=== PATIENT | female | born 1960 | race Caucasian/White ===

== ENCOUNTER 2017-04-15 16:08 | Emergency (ER) | payer MEDICARE, OTHER ==
[2017-04-15 16:36] VITALS: BP 119/58
--- NOTE | 2017-04-15 18:45 | UC ---
HPI Febrile Illness - HPI Summary HPI Summary: 56 yo female with f/c, myalgias since this AM [facility] no sore throat no cough no n/v/d no CP/SOB no UTI symptoms expsode to strep hx UTIs - History of Current Complaint Chief Complaint: UCGeneralIllness Time Seen by Provider: 04/15/17 16:44 Hx Obtained From: Patient Onset/Duration: Started Hours Ago Time of Onset: 08:00 Timing: Constant Initial Severity: Mild Current Severity: Mild Pain Intensity: 0 Pain Scale Used: 0-10 Numeric Aggravating Factors: Nothing Alleviating Factors: OTC Medicine Associated Signs and Symptoms: Arthralgia, Chills - Allergy/Home Medications Allergies/Adverse Reactions: Allergies Allergy/AdvReac Type Severity Reaction Status Date / Time NSAIDs Allergy See Comment Verified 04/15/17 16:25 Home Medications: Home Medications ALPRAZolam TAB* [Xanax TAB*] 1 mg PO TID 04/15/17 [History Confirmed 04/15/17] Acetaminophen TAB* [Tylenol TAB*] 1,000 mg PO ONCE PRN 04/15/17 [History Confirmed 04/15/17] Atorvastatin* [Lipitor*] 40 mg PO QPM 04/15/17 [History Confirmed 04/15/17] Lisinopril/HCTZ 20/12.5(NF) [Zestoretic 20/12.5(NF)] 1 tab PO DAILY 04/15/17 [ History Confirmed 04/15/17] Magnesium [Magnesium] 400 mg PO DAILY 04/15/17 [History Confirmed 04/15/17] Metoprolol Succinate XL TAB* [Toprol XL TAB*] 50 mg PO DAILY 04/15/17 [History Confirmed 04/15/17] Nortriptyline CAP* [Pamelor CAP*] 50 mg PO BEDTIME 04/15/17 [History Confirmed 04/15/17] Pantoprazole TAB (NF) [Protonix TAB (NF)] 40 mg PO DAILY 04/15/17 [History Confirmed 04/15/17] buPROPion SR TAB* [Wellbutrin SR TAB*] 150 mg PO BID 04/15/17 [History Confirmed 04/15/17] busPIRone TAB* [Buspar TAB *] 15 mg PO TID 04/15/17 [History Confirmed 06/21/17] metFORMIN* [Glucophage 500 MG TAB *] 500 mg PO BEDTIME 04/15/17 [History Confirmed 04/15/17] PMH/Surg Hx/FS Hx/Imm Hx Endocrine/Hematology History: Reports: Hx Diabetes Cardiovascular History: Reports: Hx Hypertension - Surgical History Surgery Procedure, Year, and Place: bilateral TKA, csection x2, hysterectomy, lap bam, hernia repair x3, transvaginal mesh Infectious Disease History: No Infectious Disease History: Denies: Traveled Outside the [place] in Last 30 Days - Family History Known Family History: Positive: Hypertension, Diabetes - Social History Alcohol Use: None Substance Use Type: Reports: None Smoking Status (MU): Light Every Day Tobacco Smoker Type: Cigarettes Amount Used/How Often: 1-2 cigarettes daily Review of Systems Constitutional: Fever, Chills, Fatigue Skin: Negative Eyes: Negative ENT: Negative Respiratory: Negative Cardiovascular: Negative Gastrointestinal: Negative Genitourinary: Negative Motor: Negative Neurovascular: Negative Musculoskeletal: Arthralgia, Myalgia Neurological: Headache Psychological: Negative All Other Systems Reviewed And Are Negative: Yes Physical Exam Triage Information Reviewed: Yes Appearance: Well-Appearing, No Pain Distress, Well-Nourished Vital Signs: Initial Vital Signs Temp 98.7 F 04/15/17 16:29 Pulse 83 04/15/17 16:29 Resp 16 04/15/17 16:29 BP 119/58 04/15/17 16:29 Pulse Ox 98 04/15/17 16:29 Vital Signs Reviewed: Yes Eyes: Positive: Conjunctiva Clear ENT: Positive: Hearing grossly normal, Pharyngeal erythema, TMs normal. Negative: Nasal congestion, Nasal drainage, Tonsillar swelling, Tonsillar exudate, Trismus, Muffled/hoarse voice Dental: Negative: Abscess @ Neck: Positive: Supple, Nontender, No Lymphadenopathy Respiratory: Positive: Lungs clear, Normal breath sounds, No respiratory distress, No accessory muscle use Cardiovascular: Positive: RRR, No Murmur Abdomen Description: Positive: Nontender, No Organomegaly, Soft. Negative: CVA Tenderness (R), CVA Tenderness (L) Musculoskeletal: Positive: ROM Intact, No Edema Neurological: Positive: Alert Psychological Exam: Normal Skin Exam: Normal Course/Dx - Diagnoses Clinic Provider Diagnoses: fever of uncertain cause. ? UTI Discharge - Discharge Plan Condition: Stable Disposition: HOME Prescriptions: Nitrofurantoin Monohyd Macro [Macrobid] 100 mg PO BID #14 cap Patient Education Materials: Fever in Adults (ED) Referrals: No Primary Care Phys,NOPCP [Primary Care Provider] - Additional Instructions: your urine has some white cells in it a culture is pending your strep test was negative see your MD in 2 days if not better
== END 2017-04-15 17:30 | disposition home or self-care (01) ==
LOC: UCCORT 16:08
DX: R50.9 Fever, unspecified (principal); Z87.440 Personal history of urinary (tract) infections; Z88.6 Allergy status to analgesic agent; E11.9 Type 2 diabetes mellitus without complications; Z79.84 Long term (current) use of oral hypoglycemic drugs; I10 Essential (primary) hypertension; Z90.49 Acquired absence of other specified parts of digestive tract; Z90.710 Acquired absence of both cervix and uterus; F17.210 Nicotine dependence, cigarettes, uncomplicated
CPT/HCPCS: 81003; 87086; 87651; 99202; G0463

== ENCOUNTER 2024-08-12 14:48 | Inpatient (IN) ==
[2024-08-12 17:36] LABS: Budding Yeast Present /HPF (Absent); Urine Appearance Extra Turbid; Urine Bacteria 1+ /HPF (Absent); Urine Bilirubin 1+ (Negative); Urine Blood 1+ (Negative); Urine Color Yellow; Urine Glucose Negative (Negative); Urine Ketones Trace (Negative); Urine Nitrite Negative (Negative); Urine Protein 1+ (>=30 mg/dL) (Negative); Urine Red Blood Cell 3+(>10/hpf) /HPF (0-Trace); Urine Specific Gravity 1.036 (1.002-1.030); Urine Squamous Epithelial Cell Present /HPF (Absent); Urine Urobilinogen 1+ (Negative); Urine White Blood Cell 3+(>20/hpf) /HPF (0-Trace)
[2024-08-12 17:48] LABS: ABS Eosinophils 0.1 10^3/uL (0.0-0.5); ABS Lymphocytes 2.7 10^3/uL (1.0-4.8); ABS Monocytes 0.6 10^3/uL (0.0-0.9); ABS Neutrophils 4.1 10^3/uL (1.5-7.6); ABS Nucleated RBC 0.01 10^3/ul; Eosinophil % 1.7 %; Hematocrit 40.5 % (35-45); Hemoglobin 12.6 g/dL (11.5-14.3); Lymphocyte % 35.8 %; Mean Corpuscular Hemoglobin 30.1 pg (27-33); Mean Corpuscular Volume 96.9 fL (80-97); Mean Platelet Volume 8.3 fL (7.5-11.2); Nucleated Red Blood Cells % 0.1 %/100WBC (0.0-0.8); Platelet Count 233 10^3/uL (150-450); Red Blood Count 4.18 10^6/uL (3.63-4.92); Red Cell Distribution Width 15.6 % (12-17); White Blood Count 7.5 10^3/uL (3.8-11.8)
[2024-08-12 18:03] LABS: TSH Ultra Thyroid Stim Horm 2.29 mcIU/mL (0.34-5.60)
[2024-08-12 18:17] LABS: Urine Benzodiazepine Screen Presumptive Positive (None Detect); Urine Cannabinoids Screen None Detected (None Detect); Urine Opiates Screen None Detected (None Detect)
[2024-08-12 18:18] LABS: ALT 16 U/L (7-52); AST 18 U/L (13-39); Acetaminophen < 15 mcg/mL; Albumin/Globulin Ratio 1.5 (1-3); Alcohol, S < 13 mg/dL (<13); Alkaline Phosphatase 135 U/L (35-149); Anion Gap 11 mmol/L (2-16); Blood Urea Nitrogen 20 mg/dL (6-24); CO2 Carbon Dioxide 26 mmol/L (22-32); Calcium 9.9 mg/dL (8.6-10.3); Chloride 99 mmol/L (101-111); Creatinine, Serum 1.56 mg/dL (0.51-0.95); Globulin 2.6 g/dL (2-4); Glucose 113 mg/dL (70-100); Potassium 3.9 mmol/L (3.5-5.0); Salicylate < 2.50 mg/dL (<30); Sodium 136 mmol/L (135-145); Total Bilirubin 0.4 mg/dL (0.2-1.0); Total Protein 6.6 g/dL (6.4-8.9); eGFR CKD-EPI 36.9 (>60)
[2024-08-12] MEDS ORDERED: Al Hydrox/Mg Hydrox/Simet LIQ 30 ML UDC PO PRN (19:10)
[2024-08-12] MEDS ORDERED: Nicotine GUM 2MG FRUIT FLAVOR PO PRN (19:10)
[2024-08-12] MEDS ORDERED: OLANZapine 5 mg TAB *ODT PO PRN (19:15)
[2024-08-12] MEDS ORDERED: Nitrofurantoin (monohydrate/macrocrystals) 100 mg CAP PO ONE (20:07)
[2024-08-12] MEDS: Nitrofurantoin (monohydrate/macrocrystals) 100 mg CAP PO SCH (21:26)
[2024-08-13 07:51] LABS: HDL Cholesterol 34.6 mg/dL
[2024-08-13] MEDS: Vitamin THERAPEUTIC TAB PO SCH (09:48)
[2024-08-13] MEDS ORDERED: Albuterol HFA INHALER 8 gm MDI INH PRN (12:48)
[2024-08-14] MEDS: Mupirocin 2% OINT TUBE TOPICAL SCH (16:03)
[2024-08-14] MEDS: Nystatin TOP POWDER 15 GM BTL TOPICAL SCH (16:03)
[2024-08-17 08:24] LABS: Albumin 3.3 g/dL (3.2-5.2); Albumin/Globulin Ratio 1.3 (1-3); Calcium 9.3 mg/dL (8.6-10.3); Creatinine, Serum 0.95 mg/dL (0.51-0.95); Globulin 2.6 g/dL (2-4); Potassium 4.1 mmol/L (3.5-5.0); Total Bilirubin 0.6 mg/dL (0.2-1.0); Total Protein 5.9 g/dL (6.4-8.9); eGFR CKD-EPI 66.9 (>60)
[2024-08-18] MEDS: SEMAGLUTIDE SUBCUT SCH (08:44)
[2024-08-18] MEDS: INJECTOR SUBCUT SCH (08:44)
[2024-08-19] MEDS: Nitrofurantoin (monohydrate/macrocrystals) 100 mg CAP PO SCH (20:43)
[2024-08-20] MEDS: Polyethylene Glycol 3350 17 GM PACKET PO PRN (08:31)
[2024-08-20 08:56] LABS: Albumin 3.8 g/dL (3.2-5.2); Albumin/Globulin Ratio 1.3 (1-3); Calcium 9.9 mg/dL (8.6-10.3); Creatinine, Serum 0.91 mg/dL (0.51-0.95); Potassium 4.4 mmol/L (3.5-5.0); Total Bilirubin 0.6 mg/dL (0.2-1.0); Total Protein 6.8 g/dL (6.4-8.9); eGFR CKD-EPI 70.4 (>60)
[2024-08-23] MEDS: RISPERIDONE SUBCUT ONE (11:42)
[2024-08-23] MEDS: risperiDONE ER SUBCUT (NF) 200 MG/0.56 ML SYRINGE SUBCUT ONE (12:21)
[2024-08-23] MEDS: Venlafaxine XR 75 mg PO SCH (15:21)
[2024-08-24 10:01] VITALS: BP 110/75
[2024-08-25] MEDS ORDERED: SEMAGLUTIDE SUBCUT SCH (09:00)
== END 2024-08-24 13:40 | disposition home or self-care (01) | DRG 885 ==
LOC: ED 14:48 → EDHOLD 19:10 → BSU 22:28
PROVIDERS: ADMIT Psychiatry & Neurology Psychiatry; ATTEND Student in an Organized Health Care Education/Training Program

== ENCOUNTER 2024-09-27 14:19 | Inpatient (IN) ==
[2024-09-27 15:35] LABS: ABS Basophils 0.1 10^3/uL (0.0-0.1); ABS Eosinophils 0.1 10^3/uL (0.0-0.5); ABS Lymphocytes 3.2 10^3/uL (1.0-4.8); ABS Monocytes 0.6 10^3/uL (0.0-0.9); ABS Neutrophils 8.2 10^3/uL (1.5-7.6); ABS Nucleated RBC 0.01 10^3/ul; Eosinophil % 0.4 %; Hematocrit 36.9 % (35-45); Hemoglobin 12.5 g/dL (11.5-14.3); Lymphocyte % 26.6 %; Mean Corpuscular Hemoglobin 30.4 pg (27-33); Mean Corpuscular Hgb Conc 33.8 g/dL (31-36); Mean Corpuscular Volume 89.9 fL (80-97); Mean Platelet Volume 7.7 fL (7.5-11.2); Nucleated Red Blood Cells % 0.1 %/100WBC (0.0-0.8); Platelet Count 368 10^3/uL (150-450); Red Cell Distribution Width 14.6 % (12-17); White Blood Count 12.1 10^3/uL (3.8-11.8)
[2024-09-27 15:38] LABS: Urine Appearance Clear; Urine Bilirubin Negative (Negative); Urine Blood Negative (Negative); Urine Color Light-Yellow; Urine Glucose Negative (Negative); Urine Ketones Negative (Negative); Urine Nitrite Negative (Negative); Urine Protein Negative (Negative); Urine Specific Gravity 1.006 (1.002-1.030); Urine Urobilinogen Negative (Negative); Urine pH 6.5 (5.0-8.0)
[2024-09-27 16:09] LABS: ALT 15 U/L (7-52); Acetaminophen < 15 mcg/mL; Albumin 4.4 g/dL (3.2-5.2); Albumin/Globulin Ratio 1.6 (1-3); Alcohol, S < 13 mg/dL (<13); Alkaline Phosphatase 95 U/L (35-149); Blood Urea Nitrogen 7 mg/dL (6-24); CO2 Carbon Dioxide 24 mmol/L (22-32); Calcium 10.4 mg/dL (8.6-10.3); Chloride 102 mmol/L (101-111); Creatinine, Serum 0.83 mg/dL (0.51-0.95); Globulin 2.8 g/dL (2-4); Glucose 121 mg/dL (70-100); Salicylate < 2.50 mg/dL (<30); Sodium 136 mmol/L (135-145); Total Bilirubin 0.4 mg/dL (0.2-1.0); Total Protein 7.2 g/dL (6.4-8.9); eGFR CKD-EPI 78.2 (>60)
[2024-09-27 16:10] LABS: TSH Ultra Thyroid Stim Horm 1.11 mcIU/mL (0.34-5.60)
[2024-09-27 16:11] LABS: Anion Gap 10 mmol/L (2-16)
[2024-09-27 16:17] LABS: Urine Benzodiazepine Screen None Detected (None Detect); Urine Cannabinoids Screen None Detected (None Detect); Urine Opiates Screen None Detected (None Detect)
[2024-09-27] MEDS ORDERED: Al Hydrox/Mg Hydrox/Simet LIQ 30 ML UDC PO PRN (19:05)
[2024-09-28 08:05] LABS: HDL Cholesterol 37.9 mg/dL
[2024-09-28] MEDS: Vitamin THERAPEUTIC TAB PO SCH (08:50)
[2024-09-28] MEDS ORDERED: Albuterol HFA INHALER 8 gm MDI INH PRN (10:35)
[2024-09-28 10:41] LABS: Potassium Redraw 4.6 mmol/L (3.5-5.0)
[2024-09-28] MEDS ORDERED: AMLODIPINE VALSARTAN PO SCH (10:45)
[2024-09-29] MEDS: Nystatin TOP POWDER 15 GM BTL TOPICAL SCH (08:52)
[2024-09-30 09:57] VITALS: BP 144/80
== END 2024-09-30 15:05 | disposition home or self-care (01) | DRG 885 ==
LOC: ED 14:19 → EDHOLD 19:28 → BSU 19:39
PROVIDERS: ADMIT Psychiatry & Neurology Psychiatry; ATTEND Psychiatry & Neurology Psychiatry

== ENCOUNTER 2024-10-23 18:03 | Inpatient (IN) ==
[2024-10-23 20:28] LABS: Urine Appearance Clear; Urine Bilirubin Negative (Negative); Urine Blood Negative (Negative); Urine Color Colorless; Urine Glucose Negative (Negative); Urine Ketones Negative (Negative); Urine Nitrite Negative (Negative); Urine Protein Negative (Negative); Urine Specific Gravity 1.003 (1.002-1.030); Urine Urobilinogen Negative (Negative)
[2024-10-23 20:31] LABS: Urine Bacteria Absent /HPF (Absent); Urine Red Blood Cell Trace(0-2/hpf) /HPF (0-Trace); Urine Squamous Epithelial Cell Present /HPF (Absent); Urine White Blood Cell 1+(6-10/hpf) /HPF (0-Trace)
[2024-10-23 21:06] LABS: ABS Basophils 0.1 10^3/uL (0.0-0.1); ABS Eosinophils 0.1 10^3/uL (0.0-0.5); ABS Lymphocytes 2.6 10^3/uL (1.0-4.8); ABS Monocytes 0.6 10^3/uL (0.0-0.9); ABS Neutrophils 7.5 10^3/uL (1.5-7.6); ABS Nucleated RBC 0.01 10^3/ul; Eosinophil % 0.6 %; Hematocrit 32.9 % (35-45); Hemoglobin 11.3 g/dL (11.5-14.3); Mean Corpuscular Hemoglobin 30.4 pg (27-33); Mean Corpuscular Hgb Conc 34.5 g/dL (31-36); Mean Corpuscular Volume 88.3 fL (80-97); Mean Platelet Volume 7.2 fL (7.5-11.2); Nucleated Red Blood Cells % 0.1 %/100WBC (0.0-0.8); Platelet Count 363 10^3/uL (150-450); Red Blood Count 3.73 10^6/uL (3.63-4.92); Red Cell Distribution Width 13.7 % (12-17); White Blood Count 10.9 10^3/uL (3.8-11.8)
[2024-10-23 21:37] LABS: Albumin/Globulin Ratio 1.6 (1-3); C Reactive Protein 10.42 mg/L (<8.01); Calcium 10.6 mg/dL (8.6-10.3); Creatinine, Serum 0.77 mg/dL (0.51-0.95); Globulin 2.5 g/dL (2-4); Potassium 4.3 mmol/L (3.5-5.0); Total Bilirubin 0.4 mg/dL (0.2-1.0); Total Protein 6.5 g/dL (6.4-8.9); eGFR CKD-EPI 85.6 (>60)
[2024-10-23 21:51] LABS: TSH Ultra Thyroid Stim Horm 1.91 mcIU/mL (0.34-5.60)
[2024-10-23] MEDS ORDERED: Ondansetron 4 mg VIAL 2 MG/ML 2 ml VIAL IV PRN (22:45)
[2024-10-23] MEDS ORDERED: Senna TAB 8.6 mg TAB PO PRN (22:45)
[2024-10-23] MEDS ORDERED: Polyethylene Glycol 3350 17 GM PACKET PO PRN (22:45)
[2024-10-23] MEDS ORDERED: Dextrose 50% Syringe 50 ml 25 GM/50 ML SYRINGE IV PUSH PRN (22:50)
[2024-10-24] MEDS: Enoxaparin 40 MG/0.4 ML SYR SUBCUT SCH (01:16)
[2024-10-24] MEDS: Lactated Ringers 1000 ml BAG 1,000 ML IV SCH (01:37)
[2024-10-24] MEDS: Lactated Ringers 1000 ml BAG 1,000 ML IV ONE (03:30)
[2024-10-24 04:40] LABS: ABS Basophils 0.1 10^3/uL (0.0-0.1); ABS Eosinophils 0.1 10^3/uL (0.0-0.5); ABS Lymphocytes 1.8 10^3/uL (1.0-4.8); ABS Monocytes 0.7 10^3/uL (0.0-0.9); ABS Neutrophils 4.3 10^3/uL (1.5-7.6); ABS Nucleated RBC 0.01 10^3/ul; Eosinophil % 1.2 %; Hematocrit 28.3 % (35-45); Mean Corpuscular Hemoglobin 31.4 pg (27-33); Mean Corpuscular Hgb Conc 35.5 g/dL (31-36); Mean Corpuscular Volume 88.6 fL (80-97); Nucleated Red Blood Cells % 0.2 %/100WBC (0.0-0.8); Platelet Count 275 10^3/uL (150-450); Red Cell Distribution Width 13.8 % (12-17); White Blood Count 6.8 10^3/uL (3.8-11.8)
[2024-10-24 05:11] LABS: Calcium 8.7 mg/dL (8.6-10.3); Creatinine, Serum 0.78 mg/dL (0.51-0.95); Magnesium 1.8 mg/dL (1.9-2.7); Potassium 4.1 mmol/L (3.5-5.0); eGFR CKD-EPI 84.2 (>60)
[2024-10-24] MEDS: Albuterol HFA INHALER 8 gm MDI INH PRN (08:18)
[2024-10-24] MEDS: Magnesium Sulfate 2 gm BAG 2 GM/50 ML BAG IVPB ONE (08:18)
[2024-10-24] MEDS ORDERED: AMLODIPINE VALSARTAN PO SCH (09:00)
[2024-10-24] MEDS: Nystatin TOP POWDER 15 GM BTL TOPICAL SCH (10:10)
[2024-10-25 06:36] LABS: ABS Lymphocytes 2.1 10^3/uL (1.0-4.8); ABS Monocytes 0.6 10^3/uL (0.0-0.9); ABS Neutrophils 6.4 10^3/uL (1.5-7.6); Eosinophil % 0.4 %; Hematocrit 32.5 % (35-45); Hemoglobin 11.3 g/dL (11.5-14.3); Lymphocyte % 23.3 %; Mean Corpuscular Hemoglobin 31.1 pg (27-33); Mean Corpuscular Hgb Conc 34.7 g/dL (31-36); Mean Corpuscular Volume 89.7 fL (80-97); Mean Platelet Volume 7.2 fL (7.5-11.2); Platelet Count 349 10^3/uL (150-450); Red Blood Count 3.62 10^6/uL (3.63-4.92); Red Cell Distribution Width 14.4 % (12-17); White Blood Count 9.2 10^3/uL (3.8-11.8)
[2024-10-25 08:43] LABS: Calcium 9.7 mg/dL (8.6-10.3); Creatinine, Serum 0.72 mg/dL (0.51-0.95); Magnesium 1.9 mg/dL (1.9-2.7); Potassium 4.6 mmol/L (3.5-5.0); eGFR CKD-EPI 92.7 (>60)
[2024-10-25 16:28] LABS: Erythrocyte Sed Rate 20 mm/Hr (0-29)
[2024-10-26] MEDS: Cyanocobalamin INJ 1,000 MCG/ML VIAL 1 ML VIAL IM ONE (15:54)
[2024-10-26] MEDS ORDERED: Iohexol 350 (CONTRAST) 200 ML MDV IV ONE (17:12)
[2024-10-27 06:25] LABS: Calcium 10.1 mg/dL (8.6-10.3); Creatinine, Serum 0.69 mg/dL (0.51-0.95); Magnesium 1.6 mg/dL (1.9-2.7); Potassium 4.3 mmol/L (3.5-5.0); eGFR CKD-EPI 96.3 (>60)
[2024-10-27] MEDS: Magnesium Sulfate 2 gm BAG 2 GM/50 ML BAG IVPB ONE (08:30)
[2024-10-27] MEDS ORDERED: Lorazepam PYXIS KEY PRN (09:14)
[2024-10-27] MEDS: Magnesium Sulfate IV 1GM/100ML 1 GM/100 ML BAG IV ONE (12:32)
[2024-10-27] MEDS: LORazepam 2 mg VIAL 1 ml IV PUSH ONE (20:25)
[2024-10-28 10:14] VITALS: BP 132/56
[2024-10-28 12:45] LABS: Rapid COVID-19 Molecular Undetected (Undetected)
== END 2024-10-28 13:30 | DRG 125 ==
LOC: ED 18:03 → EDHOLD 18:03 → SUATTDRO 22:45 → MED 10-24 11:50 → SUATTDRO 10-24 12:00
PROVIDERS: ADMIT Internal Medicine; ATTEND Student in an Organized Health Care Education/Training Program